=== PATIENT | male | born 1960 | race Caucasian/White ===

== ENCOUNTER 2021-09-24 15:49 | Emergency (ER) | payer OTHER ==
[~2021-09-24] VITALS: Ht 185.4 cm; Wt 145.1 kg
[2021-09-25] MEDS ORDERED: SINGULAIR10 MG PO (08:54)
== END 2021-09-24 17:07 | disposition home or self-care (01) ==
LOC: ER 15:49
DX: R60.0 Localized edema (principal)

== ENCOUNTER → 2021-09-25 | Emergency (ER) | payer OTHER ==
[~2021-09-25] VITALS: Ht 185.4 cm; Wt 136.1 kg
[~2021-09-25] MED LIST: SINGULAIR10 MG PO
== END | disposition left against medical advice (07) ==
LOC: ER 08:40
DX: R60.0 Localized edema (principal)